=== PATIENT | female | born 1965 | race Two or more races ===

== ENCOUNTER 2020-06-11 04:33 | Day surgery (SDC) | payer OTHER ==
[2020-06-10 10:59] VITALS: BMI 27.6
[2020-06-11 12:30] VITALS: TEMP 98
[2020-06-11 13:41] VITALS: BP 134/84; PULSE 61
== END 2020-06-11 13:56 | disposition home or self-care (01) ==
LOC: JASU-ENDO 04:33
PROVIDERS: ATTEND Internal Medicine Gastroenterology
PROC: 0DBN8ZX Excision of Sigmoid Colon, Via Natural or Artificial Opening Endoscopic, Diagnostic (ICD-10-PCS; principal; 2020-06-11 12:09)
DX: Z12.11 Encounter for screening for malignant neoplasm of colon (principal); D12.7 Benign neoplasm of rectosigmoid junction; Z88.0 Allergy status to penicillin; Z88.6 Allergy status to analgesic agent
CPT/HCPCS: 88305-TC

== ENCOUNTER 2020-09-07 04:45 | Day surgery (SDC) | payer OTHER ==
[2020-09-04 13:32] VITALS: BMI 27.6
[2020-09-07] MEDS ORDERED: MIDAZOLAM HCL 2 MG/2 ML SINGLE DOSE VIAL ONE (14:23)
[2020-09-07] MEDS ORDERED: KETOROLAC TROMETHAMINE 30 MG/1 ML VIAL ONE (14:27)
[2020-09-07 18:08] VITALS: BP 160/90; PULSE 76; TEMP 97.8
== END 2020-09-07 17:35 | disposition home or self-care (01) ==
LOC: JASU-SURG 04:45
PROVIDERS: ATTEND Urology
PROC: 0TF4XZZ Fragmentation in Left Kidney Pelvis, External Approach (ICD-10-PCS; principal; 2020-09-07 15:00)
DX: N20.0 Calculus of kidney (principal)

== ENCOUNTER 2022-05-23 04:04 | Day surgery (SDC) | payer OTHER ==
[2022-05-19 11:41] VITALS: BMI 25.0
[~2022-05-23 04:04] MED LIST: BUPIVACAINE HCL/PF 0.25% (2.5MG/ML) 10 ML VIAL IJ ONE; DEXAMETHASONE SOD PHOSPHATE 10 MG/1 ML VIAL IVPUSH ONE; IOHEXOL 180 MG/1 ML ML IJ ONE; LIDOCAINE 1% P/F 10 MG/ML VIAL INF ONE
[2022-05-23] MEDS ORDERED: LIDOCAINE HCL/PF 1% SDV 5ML VIAL ONE (08:05)
[2022-05-23] MEDS ORDERED: BETAMET ACET/BETAMET NA PH 30 MG/5 ML VIAL ONE (08:05)
[2022-05-23] MEDS ORDERED: BUPIVACAINE HCL/PF 0.25% (2.5MG/ML) 10 ML VIAL ONE (08:05)
[2022-05-23 08:27] VITALS: RESP 18
[2022-05-23] MEDS ORDERED: DEXAMETHASONE SOD PHOSPHATE 10 MG/1 ML VIAL IVPUSH ONE (10:34)
[2022-05-23] MEDS ORDERED: IOHEXOL 180 MG/1 ML ML IJ ONE (10:34)
[2022-05-23] MEDS ORDERED: BUPIVACAINE HCL/PF 0.25% (2.5MG/ML) 10 ML VIAL IJ ONE (10:34)
[2022-05-23] MEDS ORDERED: LIDOCAINE 1% P/F 10 MG/ML VIAL INF ONE (10:34)
[2022-05-23 12:36] VITALS: BP 139/82; PULSE 92; TEMP 98.2
== END 2022-05-23 12:40 | disposition home or self-care (01) ==
LOC: JASU-SURG 04:04
PROVIDERS: ATTEND Physical Medicine & Rehabilitation
PROC: 3E0R3BZ Introduction of Anesthetic Agent into Spinal Canal, Percutaneous Approach (ICD-10-PCS; 2022-05-23)
PROC: 3E0R33Z Introduction of Anti-inflammatory into Spinal Canal, Percutaneous Approach (ICD-10-PCS; principal; 2022-05-23 10:00)
DX: M54.16 Radiculopathy, lumbar region (principal); M54.50 Low back pain, unspecified
CPT/HCPCS: 76000-TC-FY; J1100

== ENCOUNTER 2022-07-04 04:10 | Day surgery (SDC) | payer OTHER ==
[2022-06-30 11:10] VITALS: BMI 26.1
[~2022-07-04 04:10] MED LIST changes: -BUPIVACAINE HCL/PF 0.25% (2.5MG/ML) 10 ML VIAL IJ ONE; +BUPIVACAINE HCL/PF 0.5% (5 MG/ML) 30 ML VIAL IJ ONE; +DEXAMETHASONE SOD PHOSPHATE 10 MG/1 ML VIAL IM ONE; -DEXAMETHASONE SOD PHOSPHATE 10 MG/1 ML VIAL IVPUSH ONE; -LIDOCAINE 1% P/F 10 MG/ML VIAL INF ONE; +LIDOCAINE HCL 1% PRESERVATIVE FREE - 30ML VIAL IJ ONE
[2022-07-04] MEDS ORDERED: DEXAMETHASONE SOD PHOSPHATE 10 MG/1 ML VIAL ONE (07:34)
[2022-07-04] MEDS ORDERED: LIDOCAINE HCL/PF 1% SDV 5ML VIAL ONE (07:34)
[2022-07-04] MEDS ORDERED: BUPIVACAINE HCL/PF 0.25% (2.5MG/ML) 10 ML VIAL ONE (07:34)
[2022-07-04] MEDS ORDERED: MIDAZOLAM HCL 2 MG/2 ML SINGLE DOSE VIAL ONE (12:49)
[2022-07-04] MEDS ORDERED: LIDOCAINE HCL 1% PRESERVATIVE FREE - 30ML VIAL IJ ONE (12:57)
[2022-07-04] MEDS ORDERED: IOHEXOL 180 MG/1 ML ML IJ ONE (12:58)
[2022-07-04] MEDS ORDERED: DEXAMETHASONE SOD PHOSPHATE 10 MG/1 ML VIAL IM ONE (12:58)
[2022-07-04 14:15] VITALS: TEMP 98
[2022-07-04 14:18] VITALS: RESP 18
[2022-07-04 14:48] VITALS: BP 143/75; PULSE 78
== END 2022-07-04 14:40 | disposition home or self-care (01) ==
LOC: JASU-SURG 04:10
PROVIDERS: ATTEND Physical Medicine & Rehabilitation
PROC: 3E0R33Z Introduction of Anti-inflammatory into Spinal Canal, Percutaneous Approach (ICD-10-PCS; principal; 2022-07-04 12:00)
DX: M54.12 Radiculopathy, cervical region (principal); M54.2 Cervicalgia
CPT/HCPCS: 76000-TC-FY; J1100

== ENCOUNTER 2023-02-07 04:16 | Day surgery (SDC) | payer OTHER ==
[2023-02-07 09:06] VITALS: BMI 23.3
[2023-02-07] MEDS ORDERED: MIDAZOLAM HCL 2 MG/2 ML SINGLE DOSE VIAL ONE (11:35)
[2023-02-07] MEDS ORDERED: ONDANSETRON 4 MG/2 ML VIAL ONE (11:36)
[2023-02-07] MEDS ORDERED: PROPOFOL 20 ML ONE (11:52)
[2023-02-07 16:05] VITALS: BP 140/86; PULSE 76; TEMP 97.8
[2023-02-07 16:18] VITALS: RESP 16
== END 2023-02-07 15:20 | disposition home or self-care (01) ==
LOC: JASU-SURG 04:16
PROVIDERS: ATTEND Urology
PROC: 0TF3XZZ Fragmentation in Right Kidney Pelvis, External Approach (ICD-10-PCS; principal; 2023-02-07 11:00)
DX: N20.0 Calculus of kidney (principal)